=== PATIENT | female | born 1970 | race Hispanic/Latino ===

== ENCOUNTER 2019-01-09 17:09 | Emergency (ER) | payer OTHER ==
--- OUTSIDE RECORDS SUMMARY | 2019-01-09 17:12 | XMS REPORT ---
:1970 Author Organization eClinicalWorks Care Team Providers Name Role Phone Arie Justino Provider Role Unavailable Allergies, Adverse Reactions, Alerts Substance Reaction Event Type N.K.D.A. Info Not Available Non Drug Allergy Problems Problem Type Condition Code Onset Dates Condition Status Problem Acute stress reaction F43.0 Active Problem Constipation, unspecified K59.00 Active constipation type Problem Hypothyroidism E03.9 Active Problem Fatty liver K76.0 Active Problem Hyperlipidemia E78.5 Active Problem Pure hypercholesterolemia E78.00 Active Problem Panic disorder [episodic paroxysmal F41.0 Active anxiety] Problem Acquired hypothyroidism E03.9 Active Problem Depression with anxiety F41.8 Active Assessment Panic disorder [episodic paroxysmal F41.0 Active anxiety] Assessment Depression with anxiety F41.8 Active Assessment Hyperlipidemia E78.5 Active Assessment Constipation, unspecified K59.00 Active constipation type Assessment Hypothyroidism E03.9 Active Medications Medication Code Code Instructions Start End Status Dosage System Date Date Lipitor ND 31967212083 40 MG Orally Active 1 tablet Once a day Levothyroxine ND 13560373627 75 MCG Orally Inactive 1 tablet Sodium Once a day on an empty stomach in the morning Xanax ND 30411229222 0.25 MG Orally Active 1 tablet Twice a day as needed for panic attack Linzess NDC 16367667243 72 MCG Orally Active 1 capsule Once a day on an empty stomach Levothyroxine ND 75512475930 75 MCG Orally Active 1 tablet Sodium Once a day on an empty stomach in the morning Linzess NDC 07236830746 72 MCG Orally Active 1 capsule Once a day on an empty stomach PARoxetine HCl ND 42627517812 12.5 MG Orally Active 1 tablet ER Once a day in the morning Levothyroxine ND 33624747179 50 MCG Orally Jun 08, Active 1 tablet Sodium Once a day 2017 on an empty stomach in the morning Lipitor ND 31655918747 40 MG Orally Active 1 tablet Once a day Results No Known Results Summary Purpose [employer]ClinicalWorks Submission
--- OUTSIDE RECORDS SUMMARY | 2019-01-09 17:12 | XMS REPORT ---
:1970 Author Organization eClinicalWorks Care Team Providers Name Role Phone Justino Sargent Provider Role Unavailable Allergies No Known Allergies Problems Problem Type Condition Code Onset Dates Condition Status Problem Acute stress reaction F43.0 Active Problem Constipation, unspecified K59.00 Active constipation type Problem Hypothyroidism E03.9 Active Problem Fatty liver K76.0 Active Problem Hyperlipidemia E78.5 Active Problem Pure hypercholesterolemia E78.00 Active Problem Panic disorder [episodic paroxysmal F41.0 Active anxiety] Problem Acquired hypothyroidism E03.9 Active Problem Depression with anxiety F41.8 Active Medications No Known Medications Results No Known Results Summary Purpose eClinicalWorks Submission
--- OUTSIDE RECORDS SUMMARY | 2019-01-09 17:12 | XMS REPORT ---
[...] Assessment Depression with anxiety F41.8 Active Assessment Need for influenza vaccination Z23 Active Assessment Hyperlipidemia E78.5 Active Assessment Constipation, unspecified K59.00 Active constipation type Assessment Hypothyroidism E03.9 Active Medications Medication Code Code Instructions Start End Status Dosage System Date Date Lipitor ND 73978502748 40 MG Orally Active 1 tablet Once a day Benzonatate ND 70413336531 200 MG Orally Jul 24, Aug 03, Active 1 capsule Three times a 2017 2017 day Linzess ND 24373642959 72 MCG Orally Active 1 capsule Once a day on an empty stomach Xanax ND 37517078263 0.25 MG Orally Active 1 tablet Twice a day as needed for panic attack PARoxetine HCl ER ND 89365558949 12.5 MG Orally Active 1 tablet Once a day in the morning Linzess ND 66404926772 72 MCG Orally Active 1 capsule Once a day on an empty stomach Levothyroxine ND 24105562747 50 MCG Orally Active 1 tablet Sodium Once a day on an empty stomach in the morning Lipitor ND 98816998928 40 MG Orally Active 1 tablet Once a day Results No Known Results Immunizations Vaccine Administration Date Afluria Jul 24, 2018 Summary Purpose eClinicalWorks Submission
--- OUTSIDE RECORDS SUMMARY | 2019-01-09 17:12 | XMS REPORT ---
:1970 Author Organization eClinicalWorks Care Team Providers Name Role Phone SargentJustino Provider Role Unavailable Allergies No Known Allergies Problems Problem Type Condition Code Onset Dates Condition Status Assessment Hypothyroidism E03.9 Active Problem Acute stress reaction F43.0 Active Problem Constipation, unspecified K59.00 Active constipation type Problem Hypothyroidism E03.9 Active Problem Fatty liver K76.0 Active Problem Hyperlipidemia E78.5 Active Problem Pure hypercholesterolemia E78.00 Active Problem Panic disorder [episodic paroxysmal F41.0 Active anxiety] Problem Acquired hypothyroidism E03.9 Active Problem Depression with anxiety F41.8 Active Assessment Constipation, unspecified K59.00 Active constipation type Assessment Panic disorder [episodic paroxysmal F41.0 Active anxiety] Assessment Depression with anxiety F41.8 Active Assessment Hyperlipidemia E78.5 Active Medications Medication Code Code Instructions Start End Status Dosage System Date Date Levothyroxine [facility] 08146215565 75 MCG Orally Active 1 tablet Sodium Once a day on an empty stomach in the morning Lipitor [facility] 81883506278 40 MG Orally Active 1 tablet Once a day Linzess [facility] 03273252939 72 MCG Orally Active 1 capsule Once a day on an empty stomach PARoxetine HCl ER [facility] 17060585252 12.5 MG Orally Active 1 tablet Once a day in the morning Xanax [facility] 60849257791 0.25 MG Orally Nov 16, Active 1 tablet Twice a day as 2018 needed for panic attack Results No Known Results Summary Purpose [employer] Submission
--- OUTSIDE RECORDS SUMMARY | 2019-01-09 17:12 | XMS REPORT ---
:1970 Author Organization eClinicalWorks Care Team Providers Name Role Phone SargentJustino Provider Role Unavailable Allergies No Known Allergies Problems Problem Type Condition Code Onset Dates Condition Status Problem Acute stress reaction F43.0 Active Problem Constipation, unspecified K59.00 Active constipation type Assessment Acquired hypothyroidism E03.9 Active Problem Hypothyroidism E03.9 Active Problem Fatty liver K76.0 Active Problem Hyperlipidemia E78.5 Active Problem Pure hypercholesterolemia E78.00 Active Problem Panic disorder [episodic paroxysmal F41.0 Active anxiety] Problem Acquired hypothyroidism E03.9 Active Problem Depression with anxiety F41.8 Active Medications No Known Medications Results No Known Results Summary Purpose eClinicalWorks Submission
--- OUTSIDE RECORDS SUMMARY | 2019-01-09 17:13 | XMS REPORT ---
[...] Constipation, unspecified K59.00 Active constipation type Assessment Depression with anxiety F41.8 Active Assessment Bilateral impacted cerumen H61.23 Active Assessment Panic disorder [episodic paroxysmal F41.0 Active anxiety] Assessment Hyperlipidemia E78.5 Active Assessment Fatty liver K76.0 Active Assessment Hypothyroidism E03.9 Active Medications Medication Code Code Instructions Start End Status Dosage System Date Date Linzess [facility] 76878781975 72 MCG Orally Jul 19, Active 1 capsule Once a day 2018 on an empty stomach PARoxetine HCl ER ND 62176532609 12.5 MG Orally Active 1 tablet Once a day in the morning Xanax [facility] 79694185664 0.25 MG Orally Active 1 tablet Twice a day as needed for panic attack Linzess [facility] 32958159022 72 MCG Orally Active 1 capsule Once a day on an empty stomach Lipitor [facility] 14383549388 40 MG Orally Active 1 tablet Once a day Levothyroxine ND 39243058239 75 MCG Orally Active 1 tablet Sodium Once a day on an empty stomach in the morning Lipitor [facility] 91555823488 40 MG Orally Active 1 tablet Once a day Results No Known Results Summary Purpose eClinicalWorks Submission
--- OUTSIDE RECORDS SUMMARY | 2019-01-09 17:13 | XMS REPORT ---
:1970 Author Organization eClinicalWorks Care Team Providers Name Role Phone SargentJustino Provider Role Unavailable Allergies, Adverse Reactions, Alerts Substance Reaction Event Type N.K.D.A. Info Not Available Non Drug Allergy Problems Problem Type Condition Code Onset Dates Condition Status Problem Acute stress reaction F43.0 Active Problem Constipation, unspecified K59.00 Active constipation type Problem Hypothyroidism E03.9 Active Assessment Adult BMI 29.0-29.9 kg/sq m Z68.29 Active Problem Fatty liver K76.0 Active Problem Hyperlipidemia E78.5 Active Problem Pure hypercholesterolemia E78.00 Active Problem Panic disorder [episodic paroxysmal F41.0 Active anxiety] Problem Acquired hypothyroidism E03.9 Active Problem Depression with anxiety F41.8 Active Assessment Panic disorder [episodic paroxysmal F41.0 Active anxiety] Assessment Fatty liver K76.0 Active Assessment Need for Tdap vaccination Z23 Active Assessment Constipation, unspecified K59.00 Active constipation type Assessment Hypothyroidism E03.9 Active Assessment Screening mammogram, encounter for Z12.31 Active Assessment Depression with anxiety F41.8 Active Assessment Screening for colon cancer Z12.11 Active Assessment Hyperlipidemia E78.5 Active Assessment Well adult on routine health check Z00.00 Active Medications Medication Code Code Instructions Start End Status Dosage System Date Date [facility] 86356732010 72 MCG Orally March Inactive 1 capsule Once a day 08, on an 2019 empty stomach PARoxetine HCl [facility] 20046195056 25 MG Orally Active 1 tablet ER Once a day in the morning Lipitor [facility] 49930203071 40 MG Orally Active 1 tablet Once a day Levothyroxine [facility] 63835198979 75 MCG Orally Active 1 tablet Sodium Once a day on an empty stomach in the morning Linzes [facility] 73244922442 72 MCG Orally Active 1 capsule Once a day on an empty stomach Lipitor [facility] 88685779582 40 MG Orally Active 1 tablet Once a day Xanax [facility] 31499026668 0.25 MG Orally Active 1 tablet Once a day as needed for panic attack Results No Known Results Immunizations Vaccine Administration Date TDAP > 7 Years-Adacel December 21, 2018 Summary Purpose eClinicalWorks Submission
[2019-01-09 18:23] LABS: Absolute Lymphocytes (CBC) 2.2 K/uL (0.7-4.9); Absolute Monocytes 0.8 K/uL (0.1-1.3); Absolute Neutrophil 4.8 K/uL (1.8-8.0); Basophils % 1.1 % (0-1.3); Eosinophils % 2.6 % (0-4.4); Hematocrit 43.5 % (36.0-45.0); Lymphocytes % 26.9 % (15.3-44.8); MPV 8.3 fL (7.6-11.3); Monocytes % 9.5 % (3.3-12.3); RBC Red Blood Cell Count 4.73 M/uL (3.86-4.86)
[2019-01-09 18:24] LABS: Protime INR 1.1
--- NOTE | 2019-01-09 18:31 | RAD REPORT ---
EXAM DESCRIPTION: CT - Head Brain Wo Cont - 01/09/2019 6:06 pm CLINICAL HISTORY: Headache COMPARISON: 2011 TECHNIQUE: Computed axial tomography of the head was obtained. IV contrast was not requested. All CT scans are performed using dose optimization technique as appropriate and may include automated exposure control or mA/KV adjustment according to patient size. FINDINGS: An intracranial bleed is not seen . The ventricles are normal in caliber. No extra-axial fluid collection is noted. Fluid within the sinuses/ mastoids is not seen. IMPRESSION: No acute intracranial abnormality is seen. If patient's symptoms persist MRI of the bra in would be recommended.
[2019-01-09 18:45] LABS: ALT/SGPT 114 U/L (12-78); AST/SGOT 93 U/L (15-37); Albumin 3.9 g/dL (3.4-5.0); Alkaline Phosphatase 128 U/L (45-117); BUN Blood Urea Nitrogen 9 mg/dL (7-18); Bicarbonate 30 mmol/L (21-32); Bilirubin Direct 0.1 mg/dL (0-0.2); Bilirubin Total 0.4 mg/dL (0.2-1.0); Glucose Level 132 mg/dL (74-106); NT PRO-BNP 9 pg/mL (<125); Potassium 3.7 mmol/L (3.5-5.1); Protein, Total 8.1 g/dL (6.4-8.2); Sodium Level 140 mmol/L (136-145); Troponin (Emerg Dept Use Only) < 0.02 ng/mL (0.0-0.045)
--- NOTE | 2019-01-09 18:59 | RAD REPORT ---
EXAM DESCRIPTION: [facility] Single View01/09/2019 6:49 pm CLINICAL HISTORY: Chest pain COMPARISON: none FINDINGS: The lungs appear clear of acute infiltrate. The heart is normal size IMPRESSION: No acute abnormalities displayed
[2019-01-09] MEDS ORDERED: METOCLOPRAMIDE 10 MG/2mL INJ ONE (19:37)
[2019-01-09] MEDS ORDERED: DEXAMETHASONE 10 MG/ML VIAL ONE (19:37)
[2019-01-09] MEDS ORDERED: NA CHLORIDE 0.9% 1,000 ML ONE (19:38)
[2019-01-09] MEDS ORDERED: ONDANSETRON 4 MG/2 ML VIAL ONE (19:38)
[2019-01-09] MEDS ORDERED: KETOROLAC 30 MG/ML INJ ONE (19:38)
[2019-01-09] MEDS ORDERED: ASPIRIN 81 MG CHEWABLE TABLET ONE (19:51)
--- NOTE | 2019-01-09 21:02 | RAD REPORT ---
EXAM DESCRIPTION: MRI - Brain Wo Cont - 01/09/2019 8:44 pm CLINICAL HISTORY: Headache COMPARISON: January 09, [address] TECHNIQUE: Axial, sagittal, and coronal magnetic images of the brain were obtained. Contrast was not requested FINDINGS: No abnormal signal is present within the brain. Diffusion-weighted/ADC mapping does not reveal evidence of acute infarction. The ventricles are normal caliber. An extra-axial fluid collection is not present The sinuses and mastoids are clear. IMPRESSION: Unremarkable unenhanced brain MRI
--- NOTE | 2019-01-09 23:13 | EDPHYS ---
Physician Documentation [facility] Name: Susy Blount Age: 48 yrs Sex: Female : 1970 Arrival Date: 01/09/2019 Time: 17:13 Bed 24 Private MD: Justino Sargent ED Physician Davy Concepcion HPI: 01/09 18:30 This 48 yrs old Female presents to ER via Ambulatory with complaints of Chest cp Pain, Headache, Blurred Vision, Nausea. 18:30 The patient complains of pain to the top of head and forehead. The patient describes cp the headache as aching, constant. Onset: The symptoms/episode began/occurred yesterday. 18:30 Headache History: Other this headache lasting longer than previous. Associated signs cp and symptoms: Pertinent positives: nausea, Pertinent negatives: abdominal pain, vomiting. 18:32 The patient or guardian reports chest pain that is located primarily in the anterior cp chest wall, left. 18:32 Onset: yesterday. The pain radiates to the left arm. The chest pain is described as cp aching. Duration: The patient or guardian reports multiple episodes, that wax and wane, with no pattern. [facility]AB[facility] MANAGER: 17:31 LMP N/A - Hysterectomy tw2 Historical: - Allergies: 17:30 "pain medicine i dont know which one - it cause me to stop breathing"; tw2 - Home Meds: 17:30 Synthroid Oral [Active]; levothyroxine 75 mcg tab 1 tab once daily [Active]; tw2 atorvastatin 40 mg oral tab 1 tab once daily [Active]; paroxetine HCl 10 mg oral tab 1 tab once daily [Active]; Linzess 72 mg oral cap 1 cap once daily [Active]; Xanax 0.25 mg Oral tab 1 tab as needed [Active]; - PSHx: 17:30 Hysterectomy; tw2 - Immunization history:: Adult Immunizations. - Social history:: Smoking status: . - Ebola Screening: : Patient denies travel to an Ebola-affected area in the 21 days before illness onset. ROS: 18:35 Constitutional: Negative for body aches, chills, fever, poor PO intake. cp 18:35 Eyes: Positive for blurry vision, Negative for discharge, pain, redness, vision loss. cp 18:35 ENT: Negative for drainage from ear(s), ear pain, sore throat, difficulty swallowing, difficulty handling secretions. 18:35 Cardiovascular: Positive for chest pain, Negative for edema, palpitations. 18:35 Respiratory: Positive for shortness of breath, Negative for cough, wheezing. 18:35 Abdomen/GI: Positive for nausea, Negative for abdominal pain, vomiting, diarrhea, constipation. 18:35 Back: Negative for pain at rest, pain with movement. 18:35 : Negative for urinary symptoms. 18:35 Skin: Negative for rash. 18:35 Neuro: Positive for headache, Negative for altered mental status, syncope. 18:35 All other systems are negative. Exam: 18:30 ECG was reviewed by the Attending Physician. cp 18:45 Constitutional: The patient appears in no acute distress, alert, awake, cp non-diaphoretic, non-toxic, well developed, well nourished. 18:45 Head/Face: Normocephalic, atraumatic. Eyes: Pupils equal round and reactive to light, cp extra-ocular motions intact. Lids and lashes normal. Conjunctiva and sclera are non-icteric and not injected. Cornea within normal limits. Periorbital areas with no swelling, redness, or edema. ENT: Nares patent. No nasal discharge, no septal abnormalities noted. Tympanic membranes are normal and external auditory canals are clear. Oropharynx with no redness, swelling, or masses, exudates, or evidence of obstruction, uvula midline. Mucous membranes moist. Neck: Trachea midline, no thyromegaly or masses palpated, and no cervical lymphadenopathy. Supple, full range of motion without nuchal rigidity, or vertebral point tenderness. No Meningismus. Chest/axilla: Normal chest wall appearance and motion. Nontender with no deformity. No lesions are appreciated. 18:45 Cardiovascular: Rate: normal, Rhythm: regular, Heart sounds: murmur, not appreciated, cp Edema: is not appreciated, JVD: is not appreciated. 18:45 Respiratory: the patient does not display signs of respiratory distress, Respirations: cp normal, no use of accessory muscles, no retractions, no splinting, no tachypnea, labored breathing, is not present, Breath sounds: are clear throughout, no decreased breath sounds, no stridor, no wheezing. 18:45 Abdomen/GI: Inspection: abdomen appears normal, Bowel sounds: active, all quadrants, Palpation: abdomen is soft and non-tender, in all quadrants, rebound tenderness, is not appreciated, involuntary guarding, is not appreciated. 18:45 Back: pain, is absent, ROM is normal. 18:45 Skin: cellulitis, is not appreciated, no rash present. 18:45 Neuro: Orientation: to person, place \\T\\ time. Mentation: is normal, Cerebellar function: Romberg testing is negative, normal finger to nose testing, heel to brown testing is normal, Motor: moves all fours, strength is normal, Sensation: is normal. 21:35 ECG was reviewed by the Attending Physician. cp Vital Signs: 17:31 BP 160 / 78; Pulse 77; Resp 18; Temp 98.7(O); Pulse Ox 99% on R/A; Weight 66.68 kg (R); tw2 Height 5 ft. 1 in. (154.94 cm); Pain 8/10; 18:25 BP 122 / 75; Pulse 72; Resp 19; Pulse Ox 99% on R/A; ca1 19:05 BP 131 / 79; Pulse 79; Resp 19; Pulse Ox 98% on R/A; ca1 20:17 BP 100 / 61; Pulse 72; Resp 19; Pulse Ox 95% on R/A; ca1 20:53 BP 105 / 48; Pulse 66; Resp 19; Pulse Ox 99% on R/A; ca1 21:52 BP 99 / 61; Pulse 71; Resp 19; Pulse Ox 95% on R/A; ca1 22:45 BP 100 / 60; Pulse 66; Resp 18; Pulse Ox 98% on R/A; ca1 23:15 BP 105 / 62; Pulse 72; Resp 19; Pulse Ox 99% on R/A; ca1 17:31 Body Mass Index 27.78 (66.68 kg, 154.94 cm) tw2 MDM: 18:00 Differential diagnosis: pneumonia stress, anxiety, angina, CVA, TIA. cp 18:00 Differential diagnosis: cluster headache, abnormal EKG, acute myocardial infarction, cp acute pericarditis, anxiety, costochondritis, migraine, sinusitis, subarachnoid bleed. 19:08 Patient medically screened. cp 22:52 ED course: VSS. Patient reports she is feeling much better. cp 23:10 The patient was given aspirin in the Emergency Department. 23:13 Data reviewed: vital signs, nurses notes, lab test result(s), EKG, radiologic studies, cp CT scan, MRI, plain films. 23:13 Test interpretation: by ED physician or midlevel provider: ECG, plain radiologic cp studies. Counseling: I had a detailed discussion with the patient and/or guardian regarding: the historical points, exam findings, and any diagnostic results supporting the discharge/admit diagnosis, lab results, radiology results, the need for outpatient follow up, a family practitioner, to return to the emergency department if symptoms worsen or persist or if there are any questions or concerns that arise at home. Response to treatment: the patient's symptoms have markedly improved after treatment, and as a result, I will discharge patient. 01/09 17:56 Order name: Basic Metabolic Panel; Complete Time: 19: mi 01/09 19:12 Interpretation: Normal except: GLUC 132; GFR 76. 01/09 17:56 Order name: CBC with Diff; Complete Time: 19: mi 01/09 17:56 Order name: LFT's; Complete Time: 19: mi 01/09 21:07 Interpretation: Normal except: AST 93; ALT 114; ALK 128; GLOB 4.2; A/G 0.9. 01/09 17:56 Order name: NT PRO-BNP; Complete Time: 19:09 mi 01/09 17:56 Order name: PT-INR; Complete Time: 19: mi 01/09 17:56 Order name: Troponin (emerg Dept Use Only); Complete Time: 19: mi 01/09 17:56 Order name: XRAY Chest (1 view); Complete Time: 19: mi 01/09 17:56 Order name: Head Brain Wo Cont CT; Complete Time: 19: mi 01/09 19:12 Order name: MRI - Brain Wo Cont; Complete Time: 21:06 01/09 21:08 Order name: Troponin I; Complete Time: 23:12 01/09 17:56 Order name: EKG; Complete Time: 17:56 mi 01/09 17:56 Order name: Cardiac monitoring; Complete Time: 18:13 mi 01/09 17:56 Order name: EKG - Nurse/Tech; Complete Time: 18:13 mi 01/09 17:56 Order name: IV Saline Lock; Complete Time: 18:13 mi 01/09 17:56 Order name: Labs collected and sent; Complete Time: 18:13 mi 01/09 17:56 Order name: O2 Per Protocol; Complete Time: 18:13 mi 01/09 17:56 Order name: O2 Sat Monitoring; Complete Time: 18:13 mi 01/09 21:08 Order name: EKG; Complete Time: 21:09 01/09 21:08 Order name: EKG - Nurse/Tech; Complete Time: 21:36 cp EC:30 Rate is 82 beats/min. Rhythm is regular. FL interval is normal. QRS interval is normal. cp QT interval is normal. Interpreted by me. Reviewed by me. 21:35 Rate is 64 beats/min. Rhythm is regular. FL interval is normal. QRS interval is normal. cp QT interval is normal. Clinical impression: Abnormal EKG without significant change. Interpreted by me. Reviewed by me. Administered Medications: 19:20 Drug: NS 0.9% 1000 ml Route: IV; Rate: 1 bolus; Site: right antecubital; ca1 21:00 Follow up: Response: No adverse reaction; IV Status: Completed infusion ca1 19:22 Drug: Zofran 4 mg Route: IVP; Site: right antecubital; ca1 20:30 Follow up: Response: No adverse reaction; Nausea is decreased ca1 19:24 Drug: Reglan 10 mg Route: IVP; Site: right antecubital; ca1 20:30 Follow up: Response: No adverse reaction; Marked relief of symptoms ca1 19:30 Drug: Decadron - Dexamethasone 10 mg Route: IVP; Site: right antecubital; ca1 20:30 Follow up: Response: No adverse reaction; Marked relief of symptoms ca1 19:35 Drug: TORadol 30 mg Route: IVP; Site: right antecubital; ca1 20:30 Follow up: Response: No adverse reaction; Pain is decreased ca1 19:42 Drug: Aspirin Chewable Tablet 324 mg Route: PO; rv 20:40 Follow up: Response: No adverse reaction; Pain is decreased ca1 Disposition: 23:55 Chart complete. 01/10 07:37 Co-signature as Attending Physician, Davy Concepcion MD I agree with the assessment and mi plan of care. Disposition: 01/09/19 23:13 Discharged to Home. Impression: Other chest pain, Headache. - Condition is Stable. - Discharge Instructions: Nonspecific Chest Pain, General Headache Without Cause, Aspirin and Your Heart. - Prescriptions for Ibuprofen 800 mg Oral Tablet - take 1 tablet by ORAL route every 8 hours As needed take with food; 30 tablet. - Medication Reconciliation Form, Thank You Letter, Antibiotic Education, Prescription Opioid Use, Work release form form. - Follow up: Justino Sargent; When: 1 - 2 days; Reason: Recheck today's complaints. - Problem is new. - Symptoms have improved. Signatures: Dispatcher [employer] EDMS Antwan Mcbride PA PA cp Wise, Tara RN RN tw2 Davy Concepcion MD MD wa Vicente, Ronaldo, RN RN rv AcobReshma RN RN ca1 Corrections: (The following items were deleted from the chart) 01/09 23:36 23:13 01/09/2019 23:13 Discharged to Home. Impression: Other chest pain; Headache. ca1 Condition is Stable. Discharge Instructions: Nonspecific Chest Pain, General Headache Without Cause, Aspirin and Your Heart. Prescriptions for Ibuprofen 800 mg Oral Tablet - take 1 tablet by ORAL route every 8 hours As needed take with food; 30 tablet. and Forms are Medication Reconciliation Form, Thank You Letter, Antibiotic Education, Prescription Opioid Use. Follow up: Justino Sargent; When: 1 - 2 days; Reason: Recheck today's complaints. Problem is new. Symptoms have improved. cp
--- NOTE | 2019-01-09 23:13 | ER ---
Nurse's Notes [facility] Name: Susy Blount Age: 48 yrs Sex: Female : 1970 Arrival Date: 01/09/2019 Time: 17:13 Bed 24 Private MD: Justino Sargent Diagnosis: Other chest pain;Headache Presentation: 01/09 17:25 Presenting complaint: Patient states: i started having chest pain yesterday, i feel tw2 short of breath and i feel confused, my vision got blurry and i have a headache. Transition of care: patient was not received from another setting of care. Onset of symptoms was January 09, 2019. Risk Assessment: Do you want to hurt yourself or someone else? Patient reports no desire to harm self or others. Initial Sepsis Screen: Does the patient meet any 2 criteria? No. Patient's initial sepsis screen is negative. Does the patient have a suspected source of infection? No. Patient's initial sepsis screen is negative. Care prior to arrival: None. 17:25 Method Of Arrival: Ambulatory tw2 17:25 Acuity: ABILIO 3 tw2 Triage Assessment: 17:26 General: Appears in no apparent distress. well groomed, Behavior is calm, cooperative, tw2 appropriate for age. Pain: Complains of pain in headache and chest pain. Neuro: Reports headache "like right above my ears on each side". Cardiovascular: Reports chest pain, shortness of breath. 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 - Social history:: Smoking status: . - Ebola Screening: : Patient denies travel to an Ebola-affected area in the 21 days before illness onset. Screenin:40 Abuse screen: Denies threats or abuse. Denies injuries from another. Nutritional ca1 screening: No deficits noted. Tuberculosis screening: No symptoms or risk factors identified. Fall Risk IV access (20 points). Assessment: 17:40 General: Appears in no apparent distress. comfortable, Behavior is calm, cooperative, ca1 appropriate for age. Pain: Complains of pain in anterior aspect of left upper chest and left breast Pain does not radiate. Pain currently is 6 out of 10 on a pain scale. at worst was 8 out of 10 on a pain scale. Quality of pain is described as pressure, Pain began last night Is intermittent, Also complains of nausea, shortness of breath. Neuro: Level of Consciousness is awake, alert, obeys commands, Oriented to person, place, time, situation, Loading Machine Operator are equal bilaterally Moves all extremities. Gait is steady, Speech is normal, Facial symmetry appears normal, Pupils are PERRLA, Reports dizziness. Cardiovascular: Heart tones S1 S2 present Capillary refill < 3 seconds Patient's skin is warm and dry. Rhythm is sinus rhythm. Respiratory: Airway is patent Respiratory effort is even, unlabored, Respiratory pattern is regular, symmetrical, Breath sounds are clear bilaterally. GI: Abdomen is flat, non-distended, Bowel sounds present X 4 quads. Abd is soft and non tender X 4 quads. : No deficits noted. No signs and/or symptoms were reported regarding the genitourinary system. EENT: No deficits noted. No signs and/or symptoms were reported regarding the EENT system. Derm: Skin is intact, is healthy with good turgor, Skin is pink, warm \\T\\ dry. Musculoskeletal: Circulation, motion, and sensation intact. Capillary refill < 3 seconds. 19:04 Reassessment: Patient appears in no apparent distress at this time. Patient and/or ca1 family updated on plan of care and expected duration. Pain level reassessed. Patient is alert, oriented x 3, equal unlabored respirations, skin warm/dry/pink. 20:17 Reassessment: Patient appears in no apparent distress at this time. Patient is alert, ca1 oriented x 3, equal unlabored respirations, skin warm/dry/pink. Pending MRI. 20:18 Reassessment: Pt to MRI. ca1 20:45 Reassessment: Patient appears in no apparent distress at this time. Patient is alert, ca1 oriented x 3, equal unlabored respirations, skin warm/dry/pink. Pt back from MRI. 21:30 Reassessment: Patient appears in no apparent distress at this time. Patient is alert, ca1 oriented x 3, equal unlabored respirations, skin warm/dry/pink. For repeat trop and EKG. 23:20 Reassessment: Patient appears in no apparent distress at this time. Patient is alert, ca1 oriented x 3, equal unlabored respirations, skin warm/dry/pink. Vital Signs: 17:31 BP 160 / 78; Pulse 77; Resp 18; Temp 98.7(O); Pulse Ox 99% on R/A; Weight 66.68 kg (R); tw2 Height 5 ft. 1 in. (154.94 cm); Pain 8/10; 18:25 BP 122 / 75; Pulse 72; Resp 19; Pulse Ox 99% on R/A; ca1 19:05 BP 131 / 79; Pulse 79; Resp 19; Pulse Ox 98% on R/A; ca1 20:17 BP 100 / 61; Pulse 72; Resp 19; Pulse Ox 95% on R/A; ca1 20:53 BP 105 / 48; Pulse 66; Resp 19; Pulse Ox 99% on R/A; ca1 21:52 BP 99 / 61; Pulse 71; Resp 19; Pulse Ox 95% on R/A; ca1 22:45 BP 100 / 60; Pulse 66; Resp 18; Pulse Ox 98% on R/A; ca1 23:15 BP 105 / 62; Pulse 72; Resp 19; Pulse Ox 99% on R/A; ca1 17:31 Body Mass Index 27.78 (66.68 kg, 154.94 cm) tw2 ED Course: 17:13 Patient arrived in ED. ss4 17:14 Justino Sargent DO is Private Physician. ss4 17:26 Triage completed. tw2 17:26 Arm band placed on. tw2 17:27 EKG completed in triage. Results shown to . tw2 17:32 EKG done, by quality control lab technician. reviewed by Davy Concepcion MD. sm3 17:40 Patient has correct armband on for positive identification. Placed in gown. Bed in low ca1 position. Call light in reach. Side rails up X 1. dermatologist and dermatopathologist on. Pulse ox on. NIBP on. Warm blanket given. 17:40 No provider procedures requiring assistance completed. Patient maintains SpO2 ca1 saturation greater than 95% on room air. 17:53 Inserted saline lock: 20 gauge in right antecubital area, using aseptic technique. rv Blood collected. 18:[address] nj 18:06 Head Brain Wo Cont CT In Process Unspecified. EDMS 18:08 Reshma Mcdonough, RN is Primary Nurse. ca1 18:46 Antwan Mcbride PA is PHCP. cp 18:46 Davy Concepcion MD is Attending Physician. cp 18:50 XRAY Chest (1 view) In Process Unspecified. EDMS 20:31 Patient moved to MRI via wheelchair. em2 20:42 MRI - Brain Wo Cont In Process Unspecified. EDMS 20:54 Patient moved back from MRI. vm2 23:12 Justino Sargent DO is Referral Physician. cp 23:30 IV discontinued, intact, bleeding controlled, No redness/swelling at site. Pressure ca1 dressing applied. Administered Medications: 19:20 Drug: NS 0.9% 1000 ml Route: IV; Rate: 1 bolus; Site: right antecubital; ca1 21:00 Follow up: Response: No adverse reaction; IV Status: Completed infusion ca1 19:22 Drug: Zofran 4 mg Route: IVP; Site: right antecubital; ca1 20:30 Follow up: Response: No adverse reaction; Nausea is decreased ca1 19:24 Drug: Reglan 10 mg Route: IVP; Site: right antecubital; ca1 20:30 Follow up: Response: No adverse reaction; Marked relief of symptoms ca1 19:30 Drug: Decadron - Dexamethasone 10 mg Route: IVP; Site: right antecubital; ca1 20:30 Follow up: Response: No adverse reaction; Marked relief of symptoms ca1 19:35 Drug: TORadol 30 mg Route: IVP; Site: right antecubital; ca1 20:30 Follow up: Response: No adverse reaction; Pain is decreased ca1 19:42 Drug: Aspirin Chewable Tablet 324 mg Route: PO; rv 20:40 Follow up: Response: No adverse reaction; Pain is decreased ca1 Outcome: 23:13 Discharge ordered by . cp 23:30 Discharged to home ambulatory, with significant other. ca1 23:30 Condition: stable 23:30 Discharge instructions given to patient, Instructed on discharge instructions, follow up and referral plans. medication usage, Demonstrated understanding of instructions, follow-up care, medications, Prescriptions given X 1. 23:36 Patient left the ED. ca1 Signatures: Dispatcher [employer] EDLawrence Rodriguez em2 Antwan Mcbride PA PA cp Wise, Tara, RN RN tw2 Primitivo Johnson Victoria 2 Millie Durbin 3 Alberto Nolasco RN RN [facility], NATIVIDAD Justice RN ca1 Niecy Glass 4
[2019-01-10 02:02] VITALS: TEMP 98.7
[2019-01-10 02:12] VITALS: BP 105/62; O2SAT 99
--- NOTE | 2019-01-10 06:01 | EKG ---
Test Date: 2019-01-09 Test Time: 21:27:56 Plumbing Assembler: CARLOS MEASUREMENT RESULTS: Intervals: Rate: 64 UT: 158 QRSD: 92 QT: 410 QTc: 422 [place]: P: 76 UT: 158 QRS: 78 T: 91 INTERPRETIVE STATEMENTS: Normal sinus rhythm Nonspecific T wave abnormality Abnormal ECG Compared to ECG 01/09/2019 17:27:08 T-wave abnormality now present Electronically Signed On 01-10-19 06:00:03 CDT by Travis Michaud
== END 2019-01-09 23:36 | disposition home or self-care (01) ==
LOC: ER 17:09
DX: R07.89 Other chest pain (principal); Z88.6 Allergy status to analgesic agent
CPT/HCPCS: 36415; 70450; 70551; 71045; 80048; 80076; 83880; 84484; 85025; 85610; 93005; 96361; 96374; 96375; 99285; J1100; J2405; J2765; J7030